=== PATIENT | male | born 1950 | race Two or more races ===

== ENCOUNTER 2018-10-19 17:27 | Inpatient (IN) | payer MEDICARE, MEDICAID ==
[~2018-10-19] VITALS: Ht 167.6 cm; Wt 77.9 kg
[2018-10-19] MEDS ORDERED: SODIUM CHLORIDE 0.9% 1,000 ML IV ONE (17:41)
[2018-10-19] MEDS ORDERED: ALBUTEROL SULF 2.5 MG/0.5ML(0.5%) NEB SOLN ONE (17:42)
[2018-10-19] MEDS ORDERED: IPRATROPIUM BROM 0.5 MG/2.5ML INH SOL ONE (17:42)
[2018-10-19] MEDS ORDERED: cefTRIAXone 1GM/50ML D5W 50 ML IV ONE (17:45)
[2018-10-19] MEDS ORDERED: ALBUTEROL SULF 2.5 MG/0.5ML(0.5%) NEB SOLN NEB ONE (17:45)
[2018-10-19] MEDS ORDERED: methylPREDNISolone SOD SUCC 125 MG/2 ML VL IV ONE (17:45)
[2018-10-19] MEDS ORDERED: IPRATROPIUM BROM 0.5 MG/2.5ML INH SOL NEB ONE (17:45)
[2018-10-19 18:09] LABS: Basophils # (auto) 0 uL; Basophils % (auto) 0.5 % (0.0-2.0); Eosinophils # (auto) 0.1 uL; Eosinophils % (auto) 1.6 % (0.0-7.0); Hematocrit 53.1 % (41.0-53.0); Hemoglobin 17.6 g/dL (13.5-17.5); Lymphocytes # (auto) 0.6 uL; Lymphocytes % (auto) 8.5 % (10.0-50.0); Mean Corpuscular Hemoglobin 32.7 pg (28.0-32.0); Mean Corpuscular Hgb Conc. 33.2 g/dL (32.0-36.0); Mean Corpuscular Volume 98.4 fL (80.0-100.0); Monocytes # (auto) 0.5 uL; Monocytes % (auto) 6.9 % (0.0-12.0); Neutrophils # (auto) 6.2 uL; Neutrophils % (auto) 82.5 % (37.0-80.0); Nucleated Red Blood Cells % 0.1 %; Platelet Count (auto) 196 10^3/uL (140-450); Red Blood Cells 5.39 10^6/uL (4.5-5.90); Red Cell Distribution Width 15.3 % (11.8-14.3); White Blood Cell 7.5 10^3/uL (4.4-10.8)
[2018-10-19 18:25] LABS: Albumin 3.6 g/dL (3.4-5.0); BUN/Creatinine Ratio 13.5; Calcium 8.1 mg/dL (8.5-10.1); Potassium 3.8 mmol/L (3.5-5.1)
[2018-10-19 18:28] LABS: Lactic Acid w/Reflex 2.7 mmol/L (0.4-2.0)
[2018-10-19 18:30] LABS: Bilirubin, Total 2.7 mg/dL (0.2-1.0); Total Protein 7.6 g/dL (6.4-8.2)
[2018-10-19 18:45] LABS: INR 3.74 (0.9-1.15); Partial Thromboplastin Time 40.8 sec (23.78-33.04); Prothrombin Time 37.1 sec (9.27-12.13)
[2018-10-19] MEDS ORDERED: ENOXAPARIN SOD 100 MG/1 ML SYRINGE SC ONE (19:15)
[2018-10-19] MEDS ORDERED: ASPirin 81 mg TAB PO ONE (20:00)
[2018-10-19] MEDS ORDERED: FUROSEMIDE 40 MG/4 ML VIAL IV ONE (20:15)
[2018-10-19] MEDS ORDERED: TEMAZEPAM 15 MG CAP PO PRN (20:30)
[2018-10-19] MEDS ORDERED: ACETAMINOPHEN 325 MG TAB PO PRN (20:30)
[2018-10-19] MEDS ORDERED: MORPHINE SULF INJ 2 MG/ML SYRINGE 1ML IV PRN (20:30)
[2018-10-19] MEDS ORDERED: cloNIDine HCL 0.1 MG TAB PO PRN (20:30)
[2018-10-19] MEDS ORDERED: ONDANSETRON HCL 4 MG/2 ML VIAL IV PRN (20:30)
[2018-10-19] MEDS ORDERED: NITROGLYCERIN 0.4 MG SL TAB SL PRN (20:30)
[2018-10-19] MEDS ORDERED: ALBUTEROL SULF 2.5 MG/0.5ML(0.5%) NEB SOLN NEB PRN (20:30)
[2018-10-19] MEDS: CARVEDILOL 3.125 MG TAB PO SCH (22:00)
[2018-10-19] MEDS: HYDROcodone-ACET 5/325MG TAB PO PRN (22:45)
[2018-10-19] MEDS ORDERED: ATORVASTATIN 20 MG TAB PO ONE (23:00)
[2018-10-20 03:12] VITALS: BP 144/99
[2018-10-20] MEDS: FUROSEMIDE 20 MG/2 ML VIAL IV SCH ×2 (06:00→19:03)
[2018-10-20 06:25] LABS: Basophils # (auto) 0 uL; Basophils % (auto) 0.1 % (0.0-2.0); Eosinophils # (auto) 0 uL; Hematocrit 47.7 % (41.0-53.0); Hemoglobin 16.3 g/dL (13.5-17.5); Lymphocytes # (auto) 0.3 uL; Lymphocytes % (auto) 5.4 % (10.0-50.0); Mean Corpuscular Hemoglobin 32.8 pg (28.0-32.0); Mean Corpuscular Hgb Conc. 34.1 g/dL (32.0-36.0); Mean Corpuscular Volume 96.4 fL (80.0-100.0); Monocytes # (auto) 0 uL; Monocytes % (auto) 0.7 % (0.0-12.0); Neutrophils # (auto) 5.8 uL; Neutrophils % (auto) 93.8 % (37.0-80.0); Nucleated Red Blood Cells % 0.1 %; Platelet Count (auto) 160 10^3/uL (140-450); Red Blood Cells 4.95 10^6/uL (4.5-5.90); Red Cell Distribution Width 14.4 % (11.8-14.3); White Blood Cell 6.1 10^3/uL (4.4-10.8)
[2018-10-20 06:36] LABS: Albumin 3.1 g/dL (3.4-5.0); Potassium 3.4 mmol/L (3.5-5.1)
[2018-10-20 06:40] LABS: BUN/Creatinine Ratio 14.8; Bilirubin, Total 1.6 mg/dL (0.2-1.0); Total Protein 6.7 g/dL (6.4-8.2)
--- NOTE | 2018-10-20 08:31 | NUR ---
PT ASSESSED FOR PRN HHN TX. PT IS ON 3LNC, SPO2 91%, HR 66, RR 18. NO S/S OF RESPIRATORY DISTRESS AT THIS TIME. BIPAP IS AT BEDSIDE. BIPAP ORDER RECEIVED AND NOT INDICATED AT THIS TIME. PT STATES HIS BREATHING IS "GOOD." PT AWARE TO HAVE RT PAGED IF BREATHING TX NEEDED. WILL CONTINUE TO MONITOR.
[2018-10-20] MEDS: cefTRIAXone 1GM/50ML D5W 50 ML IV SCH (09:06)
[2018-10-20] MEDS ORDERED: ENOXAPARIN SOD 100 MG/1 ML SYRINGE SC SCH (10:00)
[2018-10-20] MEDS ORDERED: CARVEDILOL 3.125 MG TAB PO SCH (10:00)
[2018-10-20] MEDS: CARVEDILOL 3.125 MG TAB PO SCH ×2 (10:52→22:40)
[2018-10-20] MEDS: ASPirin 81 mg TAB PO SCH (10:52)
[2018-10-20 18:13] LABS: Partial Thromboplastin Time 40.4 sec (23.78-33.04); Prothrombin Time 43.6 sec (9.27-12.13)
[2018-10-20 18:23] LABS: INR 4.43 (0.9-1.15)
[2018-10-20] MEDS: ATORVASTATIN 20 MG TAB PO SCH (22:40)
--- NOTE | 2018-10-21 02:48 | NUR ---
RT NOTE: PT RESTING WITH NO DISTRESS. PT ON 3LPM NC SPO2 97%, HR 60, RR 18. BS DECREASED AND CLEAR. NO TX INDICATED AT THIS TIME.
[2018-10-21] MEDS: FUROSEMIDE 20 MG/2 ML VIAL IV SCH ×2 (05:50→18:25)
--- NOTE | 2018-10-21 06:18 | NUR ---
RT NOTE: PT DECLINED NEED FOR TX AT THIS TIME. NO SIGNS OF RESPIRATORY DISTRESS NOTED. ON 3L NC SPO2 92 HR 60 RR 16. LUNG SOUNDS CLEAR DIMINISHED T/O. PT STATES HE IS READY TO GO HOME. WILL CONTINUE TO MONITOR.
[2018-10-21 07:33] LABS: Prothrombin Time 40.8 sec (9.27-12.13)
[2018-10-21 07:56] LABS: INR 4.13 (0.9-1.15)
[2018-10-21 09:26] LABS: Basophils # (auto) 0 uL; Basophils % (auto) 0.3 % (0.0-2.0); Eosinophils # (auto) 0 uL; Eosinophils % (auto) 0.2 % (0.0-7.0); Hematocrit 48.8 % (41.0-53.0); Hemoglobin 16.5 g/dL (13.5-17.5); Lymphocytes # (auto) 1.3 uL; Lymphocytes % (auto) 13.9 % (10.0-50.0); Mean Corpuscular Hemoglobin 32.9 pg (28.0-32.0); Mean Corpuscular Hgb Conc. 33.8 g/dL (32.0-36.0); Mean Corpuscular Volume 97.3 fL (80.0-100.0); Monocytes # (auto) 0.7 uL; Neutrophils # (auto) 7.1 uL; Neutrophils % (auto) 77.6 % (37.0-80.0); Platelet Count (auto) 180 10^3/uL (140-450); Red Blood Cells 5.01 10^6/uL (4.5-5.90); Red Cell Distribution Width 14.7 % (11.8-14.3); White Blood Cell 9.2 10^3/uL (4.4-10.8)
[2018-10-21] MEDS: cefTRIAXone 1GM/50ML D5W 50 ML IV SCH (09:28)
[2018-10-21 09:41] LABS: BUN/Creatinine Ratio 20.1; Potassium 3.3 mmol/L (3.5-5.1)
[2018-10-21] MEDS: ASPirin 81 mg TAB PO SCH (10:19)
[2018-10-21] MEDS: CARVEDILOL 3.125 MG TAB PO SCH ×2 (10:19→22:06)
--- NOTE | 2018-10-21 17:50 | NUR ---
Telemetry admit from ER LUPE MCCULLOUGH admitted to Telemetry unit after SBAR received. Patient oriented to Sarita Gonzalez, primary RN, unit, room, bed, and unit policies regarding patient care and visiting hours. Patient now on continuous telemetry monitoring, tele box # 25 and telemetry reading on arrival to unit is SR 65BPM. Patient encouraged to call if they need something. All questions and concerns addressed, patient verbalized understanding. Note:
--- NOTE | 2018-10-21 18:26 | NUR ---
HOME MED PATIENT STATED HE TAKES BLOOD PRESSURE MEDICATION BUT CANNOT RECALL THE NAME OF THE MEDICATION. HOOKER ON AT BEDSIDE TO TRANSLATE FOR PATIENT.
--- NOTE | 2018-10-21 19:10 | NUR ---
Opening Shift Note Assumed care of patient from day shift RN Sarita. Pt is awake and alert and oriented x4. Pt on 3L NC, respirations even equal and unlabored. Pt sitting in chair, call moody within reach. No S/S of distress/SOB or pain. Instructed on POC and to call for assist PRN, will continue to monitor for changes Q1hr and PRN. Family at bedside.
--- NOTE | 2018-10-21 20:40 | NUR ---
RT ABG RT NOTIFIED RN PT QUALIFIES FOR HOME O2 ON D/C Addendum: 10/21/18 at 2051 by RICHY MENESES RN RN WRONG PATIENT
[2018-10-21 22:00] VITALS: BP 150/87
[2018-10-21] MEDS: ATORVASTATIN 20 MG TAB PO SCH (22:08)
[2018-10-22] MEDS: FUROSEMIDE 20 MG/2 ML VIAL IV SCH ×2 (05:58→17:29)
[2018-10-22 05:59] VITALS: BP 141/93
[2018-10-22 06:12] LABS: BUN/Creatinine Ratio 24.1; Basophils # (auto) 0 uL; Basophils % (auto) 0.3 % (0.0-2.0); Calcium 7.5 mg/dL (8.5-10.1); Eosinophils # (auto) 0.1 uL; Eosinophils % (auto) 2.1 % (0.0-7.0); Hemoglobin 16.4 g/dL (13.5-17.5); INR 2.28 (0.9-1.15); Lymphocytes # (auto) 1.3 uL; Lymphocytes % (auto) 20.6 % (10.0-50.0); Mean Corpuscular Hemoglobin 32.7 pg (28.0-32.0); Mean Corpuscular Hgb Conc. 33.5 g/dL (32.0-36.0); Mean Corpuscular Volume 97.6 fL (80.0-100.0); Monocytes # (auto) 0.7 uL; Monocytes % (auto) 10.7 % (0.0-12.0); Neutrophils # (auto) 4.2 uL; Neutrophils % (auto) 66.3 % (37.0-80.0); Nucleated Red Blood Cells % 0.1 %; Platelet Count (auto) 162 10^3/uL (140-450); Prothrombin Time 23.3 sec (9.27-12.13); Red Blood Cells 5.02 10^6/uL (4.5-5.90); Red Cell Distribution Width 14.5 % (11.8-14.3); White Blood Cell 6.3 10^3/uL (4.4-10.8)
--- NOTE | 2018-10-22 07:04 | NUR ---
Closing Shift Note Endorsed care to day shift LENI Cole. Pt resting in bed, no s/s distress.
--- NOTE | 2018-10-22 07:20 | NUR ---
Opening Shift Note Assumed care of patient, awake and alert. No S/S of distress/SOB or pain. Instructed on POC and to call for assist PRN, will continue to monitor for changes Q1hr and PRN.
[2018-10-22 08:00] VITALS: BP 150/96
--- NOTE | 2018-10-22 08:59 | NUR ---
Respiratory note: ASSESSED PT FOR PRN TX PT WAS AWAKE AND ALERT NO RESP DISTRESS NOTED,WITH FAMILY AT BEDSIDE. HR 58, RR 16, SPO2 95% ON ROOM AIR. BS ARE DEREK. PT KNOWS TO HAVE RT PAGED IF TX IS NEEDED.
[2018-10-22 09:01] VITALS: BP 150/96
[2018-10-22] MEDS: cefTRIAXone 1GM/50ML D5W 50 ML IV SCH (09:39)
[2018-10-22] MEDS: CARVEDILOL 3.125 MG TAB PO SCH ×2 (09:40→21:59)
[2018-10-22] MEDS: ASPirin 81 mg TAB PO SCH (09:40)
[2018-10-22 12:31] VITALS: BP 124/78
--- NOTE | 2018-10-22 15:00 | NUR ---
Potassium 3.0 MD diaz
[2018-10-22 16:54] VITALS: BP 126/78
[2018-10-22] MEDS ORDERED: WARFARIN SODIUM 1 MG TAB PO ONE (17:00)
--- NOTE | 2018-10-22 17:09 | NUR ---
Potassium [address] Dariel Lou. 60 meq PO Now ordered.
[2018-10-22] MEDS ORDERED: POTASSIUM CHL 20 Meq TABLET PO ONE (17:15)
--- NOTE | 2018-10-22 19:10 | NUR ---
OPENING NOTE Received report from day shift RN. Patient is A&O X's 4 with no s/s of distress. Educated patient on POC and to use call light when in need of assistance. Patient verbalized understanding. Bed is in lowest/locked position with side rails up X's 2. Call light is within reach of patient. Will continue to monitor and round hourly/PRN.
--- NOTE | 2018-10-22 20:38 | NUR ---
ASSESSED PT FOR MN TX AND BIPAP, PT IS ON 3L NC 97%. BS CLEAR/DIMINISHED. NO SOB NOTED. PT DOES NOT WANT MN TX OR BIPAP TONIGHT, BUT WILL CALL IF SOB.
[2018-10-22] MEDS: ATORVASTATIN 20 MG TAB PO SCH (21:59)
[2018-10-22 22:00] VITALS: BP 139/87
[2018-10-23] VITALS (7 sets, daily range): BP systolic 121–156; BP diastolic 70–107
[2018-10-23] MEDS: FUROSEMIDE 20 MG/2 ML VIAL IV SCH ×2 (05:22→17:39)
[2018-10-23 06:49] LABS: Potassium 3.7 mmol/L (3.5-5.1)
[2018-10-23 06:51] LABS: INR 1.6 (0.9-1.15); Partial Thromboplastin Time 30.8 sec (23.78-33.04); Prothrombin Time 16.7 sec (9.27-12.13)
[2018-10-23 06:59] LABS: Albumin 3.3 g/dL (3.4-5.0); BUN/Creatinine Ratio 22.9; Bilirubin, Total 2.1 mg/dL (0.2-1.0); Total Protein 7.1 g/dL (6.4-8.2)
[2018-10-23] MEDS: cefTRIAXone 1GM/50ML D5W 50 ML IV SCH (09:45)
[2018-10-23] MEDS: CARVEDILOL 3.125 MG TAB PO SCH ×2 (09:46→22:36)
[2018-10-23] MEDS: ASPirin 81 mg TAB PO SCH (09:47)
--- NOTE | 2018-10-23 11:27 | NUR ---
NUTRITION ASSESSMENT NOTES Please refer to link notes of nutrition screen form filed under the intervention section of the plan of care for further details. Est. Needs: 1550 kcal to 1950 kcal (20-25 kcal/kgBW), 63 gms to 78 gms pro (0.8-1.0 gms/kgBW). Will continue to monitor pertinent labs and reassess nutrient need prn Thank you. Addendum: 10/23/18 at [address] Amended: Links added.
[2018-10-23] MEDS: HYDROcodone-ACET 5/325MG TAB PO PRN ×2 (12:44→16:46)
[2018-10-23] MEDS ORDERED: WARFARIN SODIUM 2 MG TAB PO ONE (17:00)
--- NOTE | 2018-10-23 18:49 | NUR ---
RT NOTE PRN ASSESSMENT DONE. PT'S BS CLEAR.NO DISTRESS NOTED. Addendum: 10/23/18 at 1850 by RADHA WASSERMAN RT RT Amended: Links added.
--- NOTE | 2018-10-23 19:10 | NUR ---
OPENING NOTE Received report from day shift RN. Patient is A&O X's 4 with no s/s of distress noted. Educated patient on POC and to use call light when in need of assistance. Patient verbalized understanding. Bed is in lowest/locked position with side rails up X's 2. Call light is within reach of patient. Will continue to monitor and round hourly/PRN
[2018-10-23] MEDS: ATORVASTATIN 20 MG TAB PO SCH (22:36)
--- NOTE | 2018-10-23 22:36 | NUR ---
REASSESSED VITAL SIGNS BP: 151/92 HR 68 O2 92 on room air. Patient shows no s/s of distress.
[2018-10-24 05:00] VITALS: BP 131/77
[2018-10-24] MEDS: FUROSEMIDE 20 MG/2 ML VIAL IV SCH (05:45)
[2018-10-24 06:53] LABS: INR 1.3 (0.9-1.15); Prothrombin Time 13.7 sec (9.27-12.13)
--- NOTE | 2018-10-24 07:00 | NUR ---
PRN MN TX NOT INDICATED AT THIS TIME. PT WAS AWAKE, ALERT AND ORIENTED. PT ON 1L/MIN VIA NC, 94% O2 SATS, HR 60 BPM, RR16, BS ARE BIBASILARLY DIMINISHED TO AUSCULTATION, SKIN IS DRY AND WARM TO THE TOUCH. RESPIRATION IS EVEN AND NONLABORED. PT DENIES SOB OR ANY OTHER RESPIRATORY DISTRESS. PT INSTRUCTED TO CALL IF MN TX IS INDICATED. PT VERBALIZED UNDERSTANDING. WILL CONTINUE TO MONITOR PT. Signed: 10/24/18 at 902 by SOFIA ECHOLS RTS SRT <Co-Signature Required> Co-Signed: 10/24/18 at 902 by Sarah Villarreal RT
--- NOTE | 2018-10-24 08:00 | NUR ---
OPENING NOTE OBSERVED PT SITTING UP IN BED, EATING BREAKFAST. PT DENIES ANY PAIN/DISTRESS AT THIS TIME. UPDATED ON POC, VERBALIZED UNDERSTANDING. ENCOURAGED PT TO CONTACT STAFF FOR PRN ASSISTANCE. CALL LIGHT AND FALL PRECAUTIONS IN PLACE. WILL CONTINUE TO MONITOR Q1H AND PRN. CONTINUE PT CARE.
[2018-10-24 08:55] VITALS: BP 109/56
[2018-10-24] MEDS: cefTRIAXone 1GM/50ML D5W 50 ML IV SCH (10:25)
[2018-10-24] MEDS: CARVEDILOL 3.125 MG TAB PO SCH (10:25)
[2018-10-24] MEDS: ASPirin 81 mg TAB PO SCH (10:25)
[2018-10-24] MEDS: HYDROcodone-ACET 5/325MG TAB PO PRN (11:28)
--- NOTE | 2018-10-24 12:33 | NUR ---
FAMILY RECEIVED PHONE CALL FROM PATIENTS NIRAYMON, CHRIS. AFTER PASSWORD OBTAINED, UPDATED ON POC. VERBALIZED UNDERSTANDING. CHRIS INQUIRING TO WHETHER OR NOT PT WILL BE DC'D HOME TODAY. INFORMED HER THAT NO DC ORDER OF YET, BUT PT STILL TO BE SEEN BY MD. INFORMED HER THAT I COULD CONTACT FAMILY WHEN POC CHANGES. VERBALIZED UNDERSTANDING.
[2018-10-24 13:04] VITALS: BP 143/86
--- NOTE | 2018-10-24 15:05 | NUR ---
FAMILY PROGRESS NOTE FROM DR. CADENA NOTED. CALLED PATIENTS FAMILY TO UPDATE THAT THERE IS NO DC ORDER AT THIS TIME. MESSAGE WITH NUMBER LEFT FOR CALL BACK IF NEEDED.
--- NOTE | 2018-10-24 16:38 | NUR ---
DISCHARGE DR. CADENA ON UNIT. PT TO BE DC'D HOME TODAY. PT AWARE. PT STATING HE WILL CONTACT HIS FAMILY REGARDING DISCHARGE ORDER.
[2018-10-24 16:48] VITALS: BP 110/57
--- NOTE | 2018-10-24 16:50 | NUR ---
DISCHARGE RECEIVED PHONE CALL FROM PATIENTS FAMILY, DANY. INFORMED HER OF NEW DISCHARGE ORDER. STATING SHE WILL BE IN TO SEE TRANSPORT PT MOMENTARILY.
[2018-10-24] MEDS ORDERED: WARFARIN SODIUM 2 MG TAB PO ONE (17:00)
--- NOTE | 2018-10-24 17:00 | NUR ---
PT NOT IN ROOM PT NO LONGER IN ROOM. IV AND TELE BOX REMOVED AND LEFT ON TABLE. CALLED PATIENTS FAMILY TO INFORM OF DC PRESCRIPTIONS AND NEED FOR F/U. NUMBER LEFT FOR CALL BACK. INFORMED PATIENT ACCOUNT REPRESENTATIVEDON.
[2018-10-24 17:12] VITALS: BP 128/85
--- NOTE | 2018-10-24 17:20 | NUR ---
PT STILL NOT IN ROOM
--- NOTE | 2018-10-24 17:40 | NUR ---
PT STILL NOT IN ROOM PT HAS NOT RETURNED TO UNIT. PREVIOUS ATTEMPT MADE TO RE-CONTACT PATIENTS FAMILY TO INFORM OF NEED FOR FOLLOW UP AND DC PRESCRIPTIONS. PRESCRIPTIONS PLACED IN PATIENT CHART.
== END 2018-10-24 19:09 | disposition home or self-care (01) | DRG 280 ==
LOC: EDUNIT# 17:27 → EDBD 17:27 → ER 17:38 → TELE 21:16 → TELE-CENTR 10-21 17:50
PROVIDERS: ADMIT Nurse Practitioner; ATTEND Internal Medicine Nephrology
PROC: 5A09357 Assistance with Respiratory Ventilation, Less than 24 Consecutive Hours, Continuous Positive Airway Pressure (ICD-10-PCS; principal; 2018-10-19)
DX: I21.4 Non-ST elevation (NSTEMI) myocardial infarction (principal); I50.43 Acute on chronic combined systolic (congestive) and diastolic (congestive) heart failure; J96.21 Acute and chronic respiratory failure with hypoxia; I13.0 Hypertensive heart and chronic kidney disease with heart failure and stage 1 through stage 4 chronic kidney disease, or unspecified chronic kidney disease; D68.9 Coagulation defect, unspecified; J44.0 Chronic obstructive pulmonary disease with (acute) lower respiratory infection; J44.1 Chronic obstructive pulmonary disease with (acute) exacerbation; N17.9 Acute kidney failure, unspecified; I42.0 Dilated cardiomyopathy; J20.9 Acute bronchitis, unspecified; N18.3 Chronic kidney disease, stage 3 (moderate); F17.210 Nicotine dependence, cigarettes, uncomplicated; J98.4 Other disorders of lung; I48.2 Chronic atrial fibrillation; E87.6 Hypokalemia; Z86.73 Personal history of transient ischemic attack (TIA), and cerebral infarction without residual deficits; I25.2 Old myocardial infarction; Z79.899 Other long term (current) drug therapy; Z95.810 Presence of automatic (implantable) cardiac defibrillator; Z71.6 Tobacco abuse counseling
CPT/HCPCS: 36415; 36600; 71045; 80048; 80053; 82805; 83605; 83880; 84484; 85025; 85610; 85730; 87040; 93005; 93306; 94640; 96361; 96365; 96375; G0378; J0696

== ENCOUNTER 2019-01-15 22:50 | Emergency (ER) | payer MEDICARE, MEDICAID ==
[~2019-01-15] VITALS: Ht 170.2 cm; Wt 104.3 kg
[~2019-01-15 22:50] MED LIST: ALBUAER3 IN; ATOR20TA PO; CARV6.2551 PO; COURX10 PO; ENAL2.5T PO; FURO20TA PO; GABA300C10 PO; TAMS0.4C36 PO; TEMA15CA PO
[2019-01-15] MEDS ORDERED: SODIUM BICARBONATE 8.4% INJ 50ML SYRINGE IV ONE (22:51)
[2019-01-15] MEDS ORDERED: DEXTROSE (50%) 50ML SYRG IV ONE (22:51)
[2019-01-15] MEDS ORDERED: EPINEPHrine HCL 1 MG/10 ML SYRG IV ONE (22:51)
[2019-01-15 23:14] VITALS: BP 0/0
== END 2019-01-15 23:04 | disposition expired ==
LOC: EDBD 22:50 → ER 22:50
DX: I46.9 Cardiac arrest, cause unspecified (principal); I48.91 Unspecified atrial fibrillation; J44.9 Chronic obstructive pulmonary disease, unspecified; I25.2 Old myocardial infarction; I13.0 Hypertensive heart and chronic kidney disease with heart failure and stage 1 through stage 4 chronic kidney disease, or unspecified chronic kidney disease; N18.9 Chronic kidney disease, unspecified; I50.9 Heart failure, unspecified; F17.210 Nicotine dependence, cigarettes, uncomplicated; Z79.01 Long term (current) use of anticoagulants; Z79.899 Other long term (current) drug therapy; Z86.73 Personal history of transient ischemic attack (TIA), and cerebral infarction without residual deficits
CPT/HCPCS: 92950; 99285; J0171; J7042